=== PATIENT | male | born 1960 | race Caucasian/White ===

== ENCOUNTER 2019-05-14 10:15 | Emergency (ER) | payer OTHER ==
[~2019-05-14] VITALS: Ht 177.8 cm; Wt 90.7 kg
--- OUTSIDE RECORDS SUMMARY | 2019-05-14 10:17 | XMS REPORT ---
Author Author [facility] Address Unknown Phone Unavailable Care Team Providers Care Senior Technical Business Analyst Name Role Phone Unavailable Unavailable Payers Payer Name Policy Type Policy Number Effective Date Expiration Date Problems This patient has no known problems. Allergies, Adverse Reactions, Alerts Allergy Name Allergy Type Status Severity Reaction(s) Onset Date Inactive Date Treating Clinician Comments Penicillins DA Active SV 2019-05-03 00:00:00 Medications This patient has no known medications.
[2019-05-14] MEDS ORDERED: KETOROLAC TROME10 MG PO (10:32)
[2019-05-14] MEDS ORDERED: DIAZEPAM5 MG PO (10:32)
[2019-05-14] MEDS ORDERED: KETOROLAC TROMETHAMINE 60 MG/2 ML VIAL IM ONE (11:00)
[2019-05-14 11:08] VITALS: BP 155/84
== END 2019-05-14 11:10 | disposition home or self-care (01) ==
LOC: ER 10:15
DX: M25.511 Pain in right shoulder (principal); S46.811A Strain of other muscles, fascia and tendons at shoulder and upper arm level, right arm, initial encounter; S46.311A Strain of muscle, fascia and tendon of triceps, right arm, initial encounter; X50.0XXA Overexertion from strenuous movement or load, initial encounter; Y99.0 Civilian activity done for income or pay
CPT/HCPCS: 99283; J1885